=== PATIENT | female | born 1945 | race Caucasian/White ===

== ENCOUNTER → 2017-08-16 | Day surgery (SDC) | payer MEDICARE, OTHER ==
[2017-08-13 15:33] VITALS: BMI 37.5
[~2017-08-16] MED LIST: PROPOFOL 20 ML ONE; PROPOFOL 200 MG/20 ML VIAL ONE
--- NOTE | 2017-08-16 13:43 | ECHO ---
TRANSESOPHAGEAL ECHOCARDIOGRAM: DATE OF SERVICE: 08/16/17 PREPROCEDURE DIAGNOSIS: Atrial fibrillation. DETAILS: The anesthesia department provided anesthesia for the patient. Please see their notes for details. After adequate sedation was achieved, the transesophageal probe was inserted into the patient's mouth and into the esophagus with ease. Multiplanar views were then obtained. FINDINGS: Left ventricle is normal size. Systolic function is estimated at 50-55%. Left atrium is dilated. Left atrial appendage is a large appendage with spontaneous echo contrast. Th ere is laminated thrombus as well as a round small thrombus at the tip of the appendage. Right atrium is mildly dilated. Right ventricle is normal size with normal systolic function. Aortic valve is sclerotic with nodular calcification of the noncoronary. No stenosis. Mild aortic ins ufficiency. Mitral valve is structurally normal. There is mild MR. No stenosis. Tricuspid valve is structurally normal. There is mild TR. No stenosis. Pulmonary valve is structurally normal. Thoracic aorta has a grade II/V atherosclerotic disease. CONCLUSIONS: 1. Normal systolic function, EF of 50-55%. 2. Nodular calcification of the aortic valve with mild AI. 3. Mild MR. 4. Mild TR. 5. Thrombus is seen in the left atrial appendage. There is a small flailing round thrombus and some laminated thrombus adjacent to this with reduced velocities and spontaneous echo contrast throughout the left atrium. Recommend against cardioversion at this point.
== END ==
LOC: CCL 07:56
PROVIDERS: ATTEND Internal Medicine Cardiovascular Disease
PROC: B24BZZ4 Ultrasonography of Heart with Aorta, Transesophageal (ICD-10-PCS; principal; 2017-08-16)
DX: I48.91 Unspecified atrial fibrillation (principal); I34.0 Nonrheumatic mitral (valve) insufficiency; I36.1 Nonrheumatic tricuspid (valve) insufficiency; I70.0 Atherosclerosis of aorta; I51.3 Intracardiac thrombosis, not elsewhere classified; Z88.0 Allergy status to penicillin; Z79.899 Other long term (current) drug therapy; Z79.01 Long term (current) use of anticoagulants
CPT/HCPCS: 92960; 93312; J2704

== ENCOUNTER 2017-08-29 10:04 | Outpatient (CLI) | payer MEDICARE, OTHER | END 2017-08-29 10:05 | disposition home or self-care (01) | LOC: BICMAMMO 10:04 | PROVIDERS: ATTEND Family Medicine | DX: Z12.31 Encounter for screening mammogram for malignant neoplasm of breast (principal); Z78.0 Asymptomatic menopausal state; R92.1 Mammographic calcification found on diagnostic imaging of breast | CPT/HCPCS: 77063; 77067; 77080 ==

== ENCOUNTER → 2017-09-24 | Day surgery (SDC) | payer MEDICARE, OTHER ==
[2017-09-23 09:52] VITALS: BMI 37.5
--- NOTE | 2017-09-24 22:18 | OP ---
DATE OF SERVICE: 09/24/2017. PREPROCEDURE DIAGNOSIS: Atrial fibrillation with RVR. PROCEDURES PERFORMED: Cardioversion. SUMMARY: The patient is a pleasant 71-year-old white female who comes to the PACU for a planned DONNA cardiovers ion. Please see DONNA report for details. After DONNA reported no thrombus in the left atrial appendage, a single synchronized cardioversion was delivered at 100 joules, successfully converting her from rapid atrial fibrillation to sinus rhythm i n the 80s. The patient tolerated the procedure well. RECOMMENDATIONS: 1. Continue anticoagulation with Eliquis. 2. Continue flecainide antiarrhythmic therapy. Follow up in the office in 1 month.
--- NOTE | 2017-09-24 22:24 | ECHO ---
DATE OF SERVICE: 09/24/2017 PREPROCEDURE DIAGNOSIS: Atrial fibrillation with RVR. PROCEDURES PERFORMED: Transesophageal echo. SUMMARY: Transesophageal echo was performed for evaluation before cardioversion. She was brought to the PACU area and consents were signed and verified. Anesthesia department provided with sedation for the pat ient. Please see their notes for details. After adequate sedation was achieved, the transesophageal probe was inserted into the mouth and into the esophagus without problems. Multiplanar views were t hen obtained. Left ventricle is normal size with normal systolic function, EF estimated at 50-55%. Left atrium is dilated, left atrial appendage is large appendage. There is spontaneous echo contrast in the left atrial appendage with no thrombus is seen. Right atrium is mildly dilated. Right ventricle is normal size with normal systolic function. Aortic valve has three cusps, no stenosis. There is mild aortic insufficiency. Mitral valve structurally normal, no stenosis, mild mitral regurgitation. Tricuspid valve is structurally normal. There is mild TR. Pulmonary valve was not well seen. CONCLUSIONS: 1. Normal systolic function, EF of 50-55%. 2. Dilated left atrium with a very large left atrial appendage with spontaneous echo contrast, but n o evidence of mass or thrombus. 3. Right atrial enlargement. 4. Mild TR, mild MR.
== END ==
LOC: CCL 06:55
PROVIDERS: ATTEND Internal Medicine Cardiovascular Disease
DX: I48.1 Persistent atrial fibrillation (principal); I10 Essential (primary) hypertension; E78.5 Hyperlipidemia, unspecified; Z79.01 Long term (current) use of anticoagulants; Z79.899 Other long term (current) drug therapy; Z88.0 Allergy status to penicillin
CPT/HCPCS: 92960; 93312; J2704

== ENCOUNTER 2018-02-15 13:33 | Inpatient (IN) | payer MEDICARE, OTHER ==
[2018-02-15 14:07] LABS: #Basophils 0.1 thou/uL (0.0-0.2); #Lymphocytes 0.7 thou/uL (1.20-3.40); #Monocytes 1.2 thou/uL (0.11-0.59); #Neutrophils 12.8 thou/uL (1.40-6.50); %Basophils 0.4 % (0.0-1.0); %Lymphocytes 4.6 % (21.0-51.0); %Monocytes 8.3 % (0.0-10.0); %Neutrophils 86.8 % (42.0-75.0); Hemoglobin 16.1 g/dL (12.0-16.0); Mean Corpuscular HGB CONC 34.3 g/dL (32.0-36.0); Mean Corpuscular Hemoglobin 32.8 pg (27.0-31.0); Mean Corpuscular Volume 95.7 fL (78.0-98.0); Mean Platelet Volume 8.2 fL (7.4-10.4); Platelet Count 253 thou/uL (130-400); RBC Distribution Width 11.7 % (11.5-14.5); Red Blood Cell (RBC) Count 4.89 mill/uL (4.20-5.40); White Blood Cell (WBC) Count 14.7 thou/uL (4.8-10.8)
[2018-02-15 14:12] LABS: INR-International Normal Ratio 1.3; PTT 29.7 SEC (22.9-36.1); Prothrombin Time 16.1 SEC (12.0-14.7)
[2018-02-15 14:19] LABS: ALT (SGPT) 169 U/L (8-55); AST (SGOT) 649 U/L (5-34); Albumin 4.5 g/dL (3.4-4.8); Alkaline Phosphatase 84 U/L (40-150); Anion Gap 25 mmol/L (10-20); BUN (Urea Nitrogen) 22 mg/dL (9.8-20.1); Bilirubin, Total 1.1 mg/dL (0.2-1.2); Calc. Creatinine Clearance 0 mL/min (70-130); Calcium 10.2 mg/dL (7.8-10.44); Carbon Dioxide 14 mmol/L (23-31); Chloride 105 mmol/L (98-107); Estimated GFR-MDRD 59; Globulin 3.7 g/dL (2.4-3.5); Glucose 154 mg/dL (83-110); Protein, Total 8.2 g/dL (6.0-8.3); Sodium 140 mmol/L (136-145)
--- NOTE | 2018-02-15 14:36 | RAD ---
CHEST 1 VIEW: Date: 02/15/18 INDICATION: History of numbness and weakness. IMPRESSION: No acute cardiopulmonary abnormality. The examination is not appreciably changed from the comparison dated 10/13/14. There are stable vascular calcifications involving the aortic arch. No pleural effusi on, pneumothorax, or air space consolidation is evident. POS: [facility]
[2018-02-15 14:38] LABS: Troponin I 0.015 ng/mL (< 0.028)
[2018-02-15 14:41] LABS: CK (CPK) 37751 U/L (29-168); CKMB 366.4 ng/mL (0-6.6)
--- NOTE | 2018-02-15 14:43 | CT ---
CT BRAIN NONCONTRAST: DATE: 02/15/18 TIME: 1425 hours HISTORY: 72-year-old female with generalized weakness and status post head trauma from fall. COMPARISON: None available. FINDINGS: There is moderate dilation of the lateral ventricles and third ventricle, and mild to moderate dilati on of the fourth ventricle. There is diffuse brain parenchymal volume loss. No acute intra-axial or e xtra-axial hemorrhage. No mass effect, midline shift, extra-axial fluid collection, or acute calvaria l fracture. There is total opacification of all visualized portions of bilateral maxillary sinuses (w ith expansion), extending into the nasal cavities bilaterally, and contiguous with severe, almost tot al opacification of all of the bilateral ethmoid air cells, sphenoid sinus, and total opacification o f bilateral frontal sinuses. IMPRESSION: 1. Ventriculomegaly. This is favored to be secondary to diffuse brain parenchymal atrophy rather michelle n normal pressure hydrocephalus, but clinical correlation is recommended (is there is gait apraxia, d ementia, and/or urinary incontinence?). 2. Diffuse chronic involutional changes of the brain. 3. No acute intracranial hemorrhage. 4. Severe harrington sinus opacification. This could be due to polyposis, including antrochoanal polyps in the maxillary sinuses bilaterally. Recommend otolaryngology consultation. JEFFRY Morillo POS: [facility]
[2018-02-15 15:22] LABS: Clarity Hazy (Clear); Specific Gravity, Urine 1.028 (1.002-1.036)
[2018-02-15 15:27] LABS: Bacteria/HPF 4+ HPF (None Seen); Crystals/HPF 4+ AMORPH PHOS HPF (Negative); Squamous Epithelial 0-3 HPF (0-3); WBC/HPF 21-50 HPF (0-3)
[2018-02-15] MEDS ORDERED: cefTRIAXone\\ROCEPHIN 2 GM VIAL ONE (15:49)
[2018-02-15] MEDS ORDERED: Sodium Chloride 0.9% 100 ML ONE (15:50)
[2018-02-15] MEDS ORDERED: Vancomycin HCl 500 MG VIAL ONE (16:37)
[2018-02-15] MEDS ORDERED: Sodium Chloride 0.9% 200 ML ONE (16:38)
[2018-02-15 17:51] VITALS: BMI 24.9
[2018-02-15] MEDS: Sodium Chloride 0.9% 1,000 ML IV SCH ×2 (18:36→20:16)
[2018-02-15 19:51] LABS: Lactic Acid 0.9 mmol/L (0.5-2.2)
[2018-02-15] MEDS: Acetaminophen 325 MG TAB PO PRN (21:11)
[2018-02-15] MEDS: Melatonin 3 MG TAB PO PRN (21:12)
[2018-02-16] MEDS ORDERED: Morphine 2 MG/ML SYRINGE SLOW IVP SCH (00:15)
[2018-02-16] MEDS ORDERED: Ondansetron PF 4 MG/2 ML Vial IVP PRN (01:21)
[2018-02-16] MEDS ORDERED: Ondansetron ODT 4 MG TAB PO PRN (01:21)
[2018-02-16] MEDS: Sodium Chloride 0.9% 1,000 ML IV SCH ×3 (02:19→16:59)
[2018-02-16 05:47] LABS: #Lymphocytes 1.4 thou/uL (1.20-3.40); #Monocytes 1.2 thou/uL (0.11-0.59); #Neutrophils 9.2 thou/uL (1.40-6.50); %Basophils 0.3 % (0.0-1.0); %Eosinophils 0.1 % (0.0-10.0); %Lymphocytes 11.6 % (21.0-51.0); %Monocytes 10.1 % (0.0-10.0); %Neutrophils 77.9 % (42.0-75.0); Hemoglobin 13.6 g/dL (12.0-16.0); Mean Corpuscular HGB CONC 34.9 g/dL (32.0-36.0); Mean Corpuscular Hemoglobin 35.3 pg (27.0-31.0); Mean Platelet Volume 8.2 fL (7.4-10.4); Platelet Count 231 thou/uL (130-400); RBC Distribution Width 11.8 % (11.5-14.5); Red Blood Cell (RBC) Count 3.86 mill/uL (4.20-5.40); White Blood Cell (WBC) Count 11.8 thou/uL (4.8-10.8)
[2018-02-16 05:54] LABS: Anion Gap 13 mmol/L (10-20); BUN (Urea Nitrogen) 14 mg/dL (9.8-20.1); Calc. Creatinine Clearance 83 mL/min (70-130); Calcium 8.5 mg/dL (7.8-10.44); Carbon Dioxide 20 mmol/L (23-31); Chloride 108 mmol/L (98-107); Estimated GFR-MDRD 84; Glucose 112 mg/dL (83-110); Potassium 3.4 mmol/L (3.5-5.1); Sodium 138 mmol/L (136-145)
[2018-02-16] MEDS: Acetaminophen 325 MG TAB PO PRN ×2 (07:10→21:05)
[2018-02-16] MEDS ORDERED: Potassium Chloride 20 MEQ TAB PO SCH (08:30)
[2018-02-16] MEDS ORDERED: Famotidine/PF 20 mg/2ml Vial SLOW IVP SCH (09:00)
[2018-02-16] MEDS: Carvedilol 6.25 MG TAB PO SCH ×2 (09:11→16:57)
[2018-02-16] MEDS: Lisinopril 20 MG TAB PO SCH (09:11)
[2018-02-16] MEDS: Flecainide 50 MG TAB PO SCH ×2 (09:12→21:03)
[2018-02-16] MEDS: Famotidine 20 MG TAB PO SCH ×2 (09:12→21:04)
--- NOTE | 2018-02-16 13:16 | ULT ---
RIGHT UPPER QUADRANT ULTRASOUND: INDICATIONS: Elevated LFTs. COMPARISON: None. FINDINGS: No focal hepatic lesion is evident. The visualized gallbladder is normal appearing. No sonographic Ureña sign is reported. The common bile duct measures 2.7 mm. The right kidney measures 10.4 x 7.5 x 6.5 cm. No focal renal lesion or hydronephrosis is evident. The visualized aspects of the pancreas are unremarkable appearing. IMPRESSION: No acute abnormality. POS: [facility]
--- NOTE | 2018-02-16 15:15 | RAD ---
RIGHT ANKLE THREE VIEWS: INDICATIONS: History of fall. FINDINGS: There is a nondisplaced lucency involving the distal lateral malleolar tip. There is a small osteoch ondral lesion involving the medial talar dome, measuring 5 mm, which may be chronic. There is soft t issue swelling surrounding the ankle. There is a nondisplaced base of fifth metatarsals fracture. T here is enthesopathic change of the calcaneus. IMPRESSION: 1. Nondisplaced fifth metatarsal base fracture. 2. Nondisplaced lateral malleolar fracture. 3. Osteochondral defect involving the medial talar dome, measuring 5.5 mm. POS: [facility]
--- NOTE | 2018-02-16 16:07 | ULT ---
ULTRASOUND WITH DOPPLER DUPLEX VENOUS LOWER EXTREMITY BILATERAL: CPT: 48571 ICD-10-PCS: B54D HISTORY: Swelling and pain in both lower extremities, predominately the right. TECHNIQUE: Color flow Doppler, spectral waveform analysis of pulsed Doppler, and vaughn-scale imaging with humaira nancy and augmentation, were used to evaluate the bilateral common femoral, femoral, popliteal, instructional specialist ior tibial, and superficial femoral, veins; and the proximal portions of the profunda femoral and gre ater saphenous, veins. FINDINGS: There is normal compression, flow, and augmentation seen within the deep venous structures of both lo wer extremities. IMPRESSION: No evidence of DVT within either lower extremity. POS: [facility]
[2018-02-16] MEDS: Atorvastatin Calcium 10 MG TAB PO SCH (21:03)
[2018-02-16] MEDS: Amlodipine 5 MG TAB PO SCH (21:03)
[2018-02-16] MEDS: Enoxaparin Sodium 40 MG/0.4 ML SYRINGE SC SCH (21:04)
[2018-02-16] MEDS: Melatonin 3 MG TAB PO PRN (21:05)
[2018-02-17] MEDS: Sodium Chloride 0.9% 1,000 ML IV SCH ×3 (02:00→17:29)
[2018-02-17 05:41] LABS: #Eosinphils 0.1 thou/uL (0.0-0.7); #Lymphocytes 1.6 thou/uL (1.20-3.40); #Monocytes 0.8 thou/uL (0.11-0.59); #Neutrophils 5.6 thou/uL (1.40-6.50); %Basophils 0.4 % (0.0-1.0); %Eosinophils 0.7 % (0.0-10.0); %Lymphocytes 20.3 % (21.0-51.0); %Monocytes 9.2 % (0.0-10.0); %Neutrophils 69.5 % (42.0-75.0); Hemoglobin 12.5 g/dL (12.0-16.0); Mean Corpuscular HGB CONC 34.3 g/dL (32.0-36.0); Mean Corpuscular Hemoglobin 35.1 pg (27.0-31.0); Mean Platelet Volume 8.3 fL (7.4-10.4); Platelet Count 209 thou/uL (130-400); RBC Distribution Width 11.8 % (11.5-14.5); Red Blood Cell (RBC) Count 3.56 mill/uL (4.20-5.40); White Blood Cell (WBC) Count 8.1 thou/uL (4.8-10.8)
[2018-02-17 06:01] LABS: Anion Gap 11 mmol/L (10-20); BUN (Urea Nitrogen) 11 mg/dL (9.8-20.1); Calc. Creatinine Clearance 88 mL/min (70-130); Calcium 8.5 mg/dL (7.8-10.44); Carbon Dioxide 21 mmol/L (23-31); Chloride 109 mmol/L (98-107); Estimated GFR-MDRD 90; Glucose 98 mg/dL (83-110); Potassium 3.3 mmol/L (3.5-5.1); Sodium 138 mmol/L (136-145)
[2018-02-17 06:26] LABS: CK (CPK) 8151 U/L (29-168)
--- NOTE | 2018-02-17 07:51 | CON ---
DATE OF CONSULTATION: 02/16/2018 REFERRING PHYSICIAN: Dr. Ramirez. REASON FOR REFERRAL: Right leg weakness and numbness. HISTORY OF PRESENT ILLNESS: This is a 72-year-old female, who last night was getting up out of bed, she said that she started to fall and grabbed a hold of a night table, she did continue to fall and landed on her right side. She states that for hours, she tried to get up, she laid there on the floor from about 1:00 a.m. to 11:00 a.m. and could not get up. She noticed that her right leg was weak and numb, mainly from the ankle down, also a little bit of numbness below the right knee. She did not feel that she had any back pain. There was some pain in the lower extremities from the calf down on the right. There was no weakness of the arms or of the face. She did not loose consciousness. This never happened before. Her chronic medical problems include atrial fibrillation, hyperlipidemia, and hypertension. PAST MEDICAL HISTORY: 1. Atrial fibrillation. 2. Hypertension. 3. Hyperlipidemia. SOCIAL HISTORY: She does not smoke or drink. FAMILY HISTORY: Positive for hypertension in her parents. REVIEW OF SYSTEMS: A 14-point review of systems is negative except for the right leg weakness and numbness and pain. Also, she has chronic swelling of both lower extremities. She states that she gets around with a walker usually because of her balance. She does not have any urinary incontinence and does not have memory loss. PHYSICAL EXAMINATION: GENERAL: She is somewhat obese, but not bad really. Height is recorded as 5 feet 6 inches, weight 154 with BMI 24.9. She is really not obese, it is mainly her legs that are swollen making her have that appearance. VITAL SIGNS: Show a temp of 99, pulse 81, respiratory rate 20, and blood pressure 115/70. HEENT: Normal. No exudates. LUNGS: Clear. HEART: No murmurs or gallops. ABDOMEN: Benign. No pain. SKIN: No rashes. There are some bruises from where she fell. JOINTS: No swelling. EXTREMITIES: The lower extremities below the knee shows 1+ edema, more swelling on the right than the left. There is a positive Chad sign on the right ankle. NEUROLOGICAL: She is awake, alert, oriented x3, calm. Cranial nerves 2 through 12 tested normally. Pupils are 2 mm and reactive. Discs are sharp. Motor in the arms is 5/5 strength with normal tone and bulk. No atrophy or fasciculations. The left lower extremity shows 5/5 strength with normal tone and bulk. The right lower extremity shows proximally her strength 5/5, distally however, she has a foot drop, limited range of motion and 3/5 strength and plantar flexion is fairly good at 4/5 strength. Sensation is intact to light touch and temperature in the upper extremities and in the left lower extremity. In the right lower extremity, in the thigh, temperature and touch is normal and the lower extremity it is diminished on the medial and lateral aspects of the right leg below the knee and more diminished on the lateral part as opposed to the medial part. DTRs are 2+. Toes are downgoing. LABORATORY DATA: Review of test results showed that she had a CT of the head without contrast which is negative and her labs showed that there are some CPKs of 37,751 which has come down to 19,950. IMPRESSION: Status post fall and now she has right leg numbness, weakness, and pain mostly below the knee. This may be consistent with a lumbar herniated disk or possibly with a pinched nerve in her ankle due to her fall. Cerebrovascular accident is somewhat doubtful because there was no weakness of the right arm or the face. However, certain strokes may cause just weakness of the leg. Also considering that she has a positive Chad sign on the right, deep vein thrombosis should be ruled out. PLAN: I ordered an MRI of the brain and MRI of the lumbar spine without contrast, she thinks she may be claustrophobic, so we will order Ativan 1 mg IV transition social worker to the MRI. We will order x-ray of the right ankle and venous doppler of the lower extremities. Discussed with the patient and her daughter. Job ID: [id number]
[2018-02-17] MEDS: Carvedilol 6.25 MG TAB PO SCH ×2 (08:12→17:28)
[2018-02-17] MEDS: Famotidine 20 MG TAB PO SCH ×2 (08:13→20:20)
[2018-02-17] MEDS: Flecainide 50 MG TAB PO SCH ×2 (08:13→20:20)
[2018-02-17] MEDS: Lisinopril 20 MG TAB PO SCH (08:13)
[2018-02-17] MEDS ORDERED: Lorazepam 2 MG/ML VIAL (09:00)
[2018-02-17] MEDS ORDERED: Lorazepam 2 MG/ML VIAL SLOW IVP ONE (09:00)
--- NOTE | 2018-02-17 10:15 | HP ---
CHIEF COMPLAINT: Right lower extremity numbness and status post fall. HISTORY OF PRESENT ILLNESS: The patient is a 72-year-old female, who took a fall last night in the middle of the night. She spent a quite a bit of time on the floor trying to get to bed, finally she did it, and she was able to go to sleep, and this morning, she noticed that there was some numbness in her right lower extremity, and she had some weakness on this side. She was not able to get up and do her routine. Usually, she walks with a walker, so she was taken by EMS to the emergency room for further evaluation and possible admission. Her primary care physician is Dr. Del Rosario and plaster die maker is Dr. Christian. She does not know whether she lost consciousness. She does not know why she fell and what happened exactly. She denies any pain in her leg, just numbness and weakness. She denies any chest pain, dyspnea, or palpitations. She denies any urinary frequency or hematuria. She just noticed that her urine was dark. Apparently, family reported to the emergency room doctor a history of falls in the past. PAST MEDICAL HISTORY: Her past medical history is positive for, 1. Atrial fibrillation. 2. Hyperlipidemia. 3. Hypertension. PAST SURGICAL HISTORY: section x2. SOCIAL HISTORY: She denies any alcohol intake, cigarette smoking, or abusing any illicit drugs. ALLERGIES: PENICILLIN G . MEDICATIONS: 1. Carvedilol 12.5 mg twice a day. 2. Eliquis 5 mg twice a day. 3. Flecainide 50 mg twice a day. 4. Lisinopril 20 mg once a day. 5. Amlodipine 5 mg once a day. 6. Simvastatin 20 mg once a day. PHYSICAL EXAMINATION: GENERAL: She is not in any significant discomfort at this time. VITAL SIGNS: Blood pressure is 161/78, pulse is 95, temperature is 99.2, respiratory rate is 18, and O2 saturation is 95% on room air. HEENT: Her head is normocephalic. Eyes are PERRLA. Sclerae are nonicteric. Conjunctivae are pinkish. Oral mucosa is moist. NECK: Supple. No lymphadenopathy. LUNGS: Clear. HEART: S1 and S2 normal. No S3. No S4. ABDOMEN: Soft, obese, nontender. Bowel sounds are present. No organomegaly. EXTREMITIES: She has several bruises on her left forearm and elbow and in front of her right knee. She has 2+ peripheral edema on both lower extremities. I cannot palpate pulses on her dorsalis pedis and tibialis posterior arteries, similar bilaterally. NEUROLOGIC: She is alert and oriented x4. There is a significant decreased strength in her lower extremities, more on the right than on the left. It is approximately 2/5 on the right side and 3/5 on the left side. She complains about some numbness below the right knee in a circumferential way all the way to the foot . Her extraocular movements within normal limits. Visual rizzo within normal limits. LABORATORY DATA: Labs from yesterday, white count 14.7, hemoglobin 16.1, hematocrit 46.8, platelet count 253,000, 12.8 neutrophils. PT 16.1, INR 1.3, APTT 29.7. Sodium 140, potassium 4.0, chloride 105, CO2 of 14, BUN 22, creatinine 0.94. Lactic acid 7.5. AST 649, ALT 169, alkaline phosphatase 84, total bili 1.1. Creatinine kinase 37,751, CK-MB 366.4, and troponin 0.015. BNP 63.5. Total protein 8.2, globulin 3.7. Urine is brown with specific gravity of 1.028, rbc's 11 to 20, wbc's 21 to 50, 4+ bacteria. Today, her potassium is down to 3.4, and her lactic acid is improved to 0.9. CO2 is up to 20, and white count is down to 11.8 with normal hemoglobin at 13.6. IMAGING STUDIES: CT of the brain showed: 1. Ventriculomegaly. 2. Diffuse chronic involutional changes of the brain. 3. Severe harrington sinus opacification of unclear etiology. Chest x-ray, no acute cardiopulmonary findings. EKG personally reviewed by me showed complete right bundle-branch block, first-degree AV block, nonspecific ST-wave abnormalities, normal axis. IMPRESSION: 1. Status post fall, rhabdomyolysis. It is unclear whether she lost consciousness. She does not think so. 2. Non-anion gap metabolic acidosis, which is resolved at this point with IV fluids. 3. History of paroxysmal atrial fibrillation, now she is in sinus rhythm. 4. Chronic anticoagulation for atrial fibrillation. 5. Hypokalemia. 6. Elevation of transaminases, unclear etiology. The patient is asymptomatic. 7. 4+ bacteria with negative leukocyte esterases and negative nitrites, which looks like just a dirty urine. No infection, but the patient received vancomycin and Rocephin in the emergency room for possible infection. 8. Hypertension. 9. Hyperlipidemia. 10. Ventriculomegaly on the CT of unclear etiology. The patient does not have dementia. She does not have urinary incontinence, which was pointed out towards normal-pressure hydrocephalus. 11. Severe harrington sinus opacification. She will need to have ENT evaluation on outpatient basis when she is over her current problem. PLAN: Full admission to the medical floor. Condition is fair. Activity, bedrest. IV fluids, normal saline at 125 mL per hour. Serial CKs, repeat liver function test, ultrasound of the liver. Urology consultation. Continue her home meds except for apixaban. We will start her on DVT prophylaxis with SCDs and 40 mg of subcutaneous Lovenox every 24 hours, and we will ask her to have ENT evaluation on outpatient basis for her sinus problem. We will give her one dose of potassium since her potassium is 3.4 this morning, and she will have morphine for some pain or discomfort in her lower extremities. Job ID: [id number]
--- NOTE | 2018-02-17 15:45 | PDOC.PN ---
- Subjective Encounter Start Date: 02/17/18 Encounter Start Time: 15:44 Ms. Royal was seen today in follow-up of Rhabdomyolysis following a fall. She is concerned about her right leg which she says isn't " right". She - Objective MAR Reviewed: Yes Vital Signs & Weight: Vital Signs (12 hours) Temp Pulse Resp BP BP Pulse Ox 02/17/18 12:14 98.6 F 87 20 138/80 95 02/17/18 11:51 97.9 F 70 16 147/83 H 96 02/17/18 08:16 95 02/17/18 08:13 136/90 02/17/18 08:12 136/90 02/17/18 08:00 98.0 F 102 H 18 136/90 95 02/17/18 04:00 98.2 F 90 18 134/77 95 Weight Weight 154 lb 6.4 oz I&O: 02/16/18 02/17/18 02/18/18 06:59 06:59 06:59 Intake Total 3525 Balance 3525 Result Diagrams: 02/17/18 05:03 02/17/18 05:03 Phys Exam - Physical Examination HEENT: PERRLA Respiratory: no wheezing, no rales, no rhonchi, clear to auscultation bilateral Cardiovascular: RRR, no significant murmur, no rub Gastrointestinal: soft, non-tender, positive bowel sounds Musculoskeletal: edema present + swelling-2+ edema in both lower extremities R> L Neurological: non-focal, moves all 4 limbs Dx/Plan (1) Rhabdomyolysis Code(s): M62.82 - RHABDOMYOLYSIS Status: Acute (2) Right leg weakness Code(s): R29.898 - OTH SYMPTOMS AND SIGNS INVOLVING THE MUSCULOSKELETAL SYSTEM Status: Acute (3) Fracture of right ankle, lateral malleolus Code(s): S82.61XA - DISP FX OF LATERAL MALLEOLUS OF RIGHT FIBULA, INIT Status : Acute (4) Metatarsal bone fracture Status: Acute (5) Hypertension Code(s): I10 - ESSENTIAL (PRIMARY) HYPERTENSION Status: Acute (6) Atrial fibrillation Code(s): I48.91 - UNSPECIFIED ATRIAL FIBRILLATION Status: Acute - Plan * Rhabdomyolysis- improving- continue IV Hydration * Right leg weakness- Agree with MRI of the brain and lumbar spine * Right ankle fracture- will consult Orthopedic Surgery * HTN- blood pressure is stable * AFIB- heart rate is stable- Eliquis is on hold .
--- NOTE | 2018-02-17 16:40 | MRI ---
MRI OF THE BRAIN WITHOUT CONTRAST: Date: 02/17/18 COMPARISON: None. HISTORY: Fall on Saturday, right leg weakness, assess for acute infarction. TECHNIQUE: Multiplanar, multisequence MR imaging of the brain is obtained without contrast. FINDINGS: The diffusion-weighted imaging demonstrates no evidence for acute infarction. The axial gradient echo imaging demonstrates no evidence for intracranial hemorrhage. There is extensive paranasal sinus disease with opacification of the frontal sinuses, ethmoid air marilyn ls, sphenoid sinuses, and maxillary sinuses. Areas of decreased T2 signal within the opacified parana luis felipe sinuses including bilateral ethmoid air cells, sphenoid sinuses, and maxillary sinuses suggest in spissated secretions and polyposis, and/or fungal sinusitis. There is mild/moderate cerebral volume loss with associated prominence of the CSF-containing spaces. Regional bone marrow signal intensity appears within normal limits. IMPRESSION: Extensive paranasal sinus disease. No evidence for acute infarction or intracranial hemorrhage. POS: [facility]
--- NOTE | 2018-02-17 17:47 | MRI ---
LUMBAR SPINE MRI WITHOUT CONTRAST: 02/17/2018 HISTORY: Fall. Trauma. Pain. Right lower extremity weakness. COMPARISON: None. TECHNIQUE: Multiplanar, multisequence MR imaging of the lumbar spine provided without contrast. FINDINGS: The sagittal STIR imaging demonstrates no focal area of osseous marrow edema. There is distention of a partially imaged urinary bladder. Vertebral body height and alignment appear normal, within the l umbar spine. Assuming five lumbar type vertebral bodies, the conus medullaris terminates at the T12-L1 level. T12-L1: Disk space narrowing and disk desiccation. Mild bilateral facet hypertrophy. No significan t central canal or neural foraminal stenosis. L1-L2: Bilateral facet hypertrophy with fluid within the bilateral facet joints. There is disk spac e narrowing and disk desiccation. There is no significant central canal or neural foraminal stenosis . L2-L3: Bilateral facet hypertrophy and hypertrophy of the ligamentum flavum. Fluid is seen within t he bilateral facet joints. There is disk space narrowing and disk desiccation with mild disk bulge. No significant central canal stenosis. Mild bilateral neural foraminal stenosis. L3-L4: Moderate bilateral facet hypertrophy with fluid within the bilateral facet joints. Disk spac e narrowing and disk desiccation with no significant central canal or neural foraminal stenosis. L4-L5: Disk space narrowing, disk desiccation, and mild bilateral facet hypertrophy. Fluid signal i ntensity noted within the bilateral facet joints, with no significant central canal or neural foramin al stenosis. L5-S1: Bilateral facet hypertrophy with fluid within the bilateral facet joints. There is disk brittanie ccation with no significant central canal or neural foraminal stenosis. The imaged retroperitoneal structures demonstrate no acute findings. IMPRESSION: Multilevel degenerative change, primarily affecting the facet joints. There is fluid within multiple facet joints, which may be seen on the basis of instability. This could be better assessed with poncho tral, flexion, and extension lateral radiographs of the lumbar spine. POS: [facility]
[2018-02-17] MEDS: Enoxaparin Sodium 40 MG/0.4 ML SYRINGE SC SCH (20:19)
[2018-02-17] MEDS: Atorvastatin Calcium 10 MG TAB PO SCH (20:20)
[2018-02-17] MEDS: Amlodipine 5 MG TAB PO SCH (20:20)
[2018-02-17] MEDS: Cipro 250 MG TAB PO SCH (20:21)
[2018-02-18 04:33] LABS: #Eosinphils 0.1 thou/uL (0.0-0.7); #Lymphocytes 1.4 thou/uL (1.20-3.40); #Monocytes 0.6 thou/uL (0.11-0.59); #Neutrophils 4.7 thou/uL (1.40-6.50); %Basophils 0.6 % (0.0-1.0); %Eosinophils 0.9 % (0.0-10.0); %Neutrophils 68.4 % (42.0-75.0); Hemoglobin 12.3 g/dL (12.0-16.0); Mean Corpuscular HGB CONC 35.2 g/dL (32.0-36.0); Mean Corpuscular Hemoglobin 35.9 pg (27.0-31.0); Mean Platelet Volume 8.3 fL (7.4-10.4); Platelet Count 203 thou/uL (130-400); RBC Distribution Width 11.5 % (11.5-14.5); Red Blood Cell (RBC) Count 3.44 mill/uL (4.20-5.40); White Blood Cell (WBC) Count 6.9 thou/uL (4.8-10.8)
[2018-02-18 04:45] LABS: Anion Gap 9 mmol/L (10-20); BUN (Urea Nitrogen) 8 mg/dL (9.8-20.1); Calc. Creatinine Clearance 94 mL/min (70-130); Calcium 8.6 mg/dL (7.8-10.44); Carbon Dioxide 24 mmol/L (23-31); Chloride 108 mmol/L (98-107); Estimated GFR-MDRD Greater than 90; Glucose 98 mg/dL (83-110); Sodium 138 mmol/L (136-145)
[2018-02-18 04:58] LABS: CK (CPK) 6240 U/L (29-168)
[2018-02-18] MEDS: Cipro 250 MG TAB PO SCH ×2 (05:52→20:40)
[2018-02-18] MEDS: Sodium Chloride 0.9% 1,000 ML IV SCH ×3 (05:53→17:25)
[2018-02-18] MEDS: Lisinopril 20 MG TAB PO SCH (08:00)
[2018-02-18] MEDS: Carvedilol 6.25 MG TAB PO SCH ×2 (08:00→17:21)
[2018-02-18] MEDS: Flecainide 50 MG TAB PO SCH ×2 (08:01→20:23)
[2018-02-18] MEDS: Famotidine 20 MG TAB PO SCH ×2 (08:01→20:22)
[2018-02-18] MEDS: Potassium Chloride 20 MEQ TAB PO SCH ×2 (10:26→14:04)
[2018-02-18] MEDS ORDERED: Potassium Chloride 20 MEQ TAB PO SCH (13:00)
--- NOTE | 2018-02-18 14:16 | CON ---
DATE OF CONSULTATION: 02/18/2018 REQUESTING PHYSICIAN: Dr. Jean Marie Byers. CONSULTING PHYSICIAN: Kenn Horta MD REASON FOR CONSULTATION: Right ankle fracture. HISTORY OF PRESENT ILLNESS: This is a 72-year-old female, who fell in the evening of February 14, 2018. She was at home. She spent quite a bit of time on the floor trying to get on the bed. When she finally awoke, she noted some numbness in her right lower extremity. She was admitted for rhabdomyolysis and right lower extremity numbness. Since her hospital admission, she has been seen by the Neurology Team. She has obtained x-rays of her ankle, which showed nondisplaced fracture. We have been consulted for this reason. Her main complaint is numbness. She denies a history of ankle surgery to this side. PAST MEDICAL HISTORY: Significant for atrial fibrillation, hyperlipidemia, hypertension. PAST SURGICAL HISTORY: section x2. SOCIAL HISTORY: Denies any alcohol, tobacco, or illicit drug use. ALLERGIES: PENICILLIN. FAMILY HISTORY: Reviewed, noncontributory. REVIEW OF SYSTEMS: Conducted and otherwise negative except for stated above. PHYSICAL EXAMINATION: VITAL SIGNS: Temperature 99.8, pulse 89, respiratory rate 20, blood pressure 140/84. GENERAL: The patient is awake and alert. She is in no acute distress. She is pleasant and cooperative with exam findings today. HEENT: Normocephalic, atraumatic. NECK: Supple. Trachea midline. Breathing nonlabored. CARDIOVASCULAR: Regular rate and rhythm. EXTREMITIES: The right lower extremity was evaluated. The patient does have some swelling distally. She has decreased sensation noted with gentle palpation of the lateral malleolus. No significant tenderness to palpation. She is able to move all digits of her toes. Capillary refill intact. SKIN: Intact without lesions or rashes. RADIOGRAPHIC FINDINGS: Including views of the right ankle demonstrate a non-displaced distal lateral malleolus fracture. Of note, there is a chondral defect to the talar dome and a non-displaced fifth metatarsal base fracture. ASSESSMENT: Right ankle nondisplaced fracture. PLAN: At this time, we have ordered an orthopedic walking boot. We will also like NAVA hose applied for compression. The patient may weightbear as tolerated. No surgical intervention anticipated from us at this time. She may follow up in the [facility] in 2 to 3 weeks for further evaluation. All questions have been answered at this time. Job ID: [id number]
--- NOTE | 2018-02-18 16:39 | PDOC.PN ---
- Subjective Encounter Start Date: 02/18/18 Encounter Start Time: 14:00 Ms. Royal was seen today in follow-up of fall with Rhabdomyolysis, and right leg weakness. She says she continues to feel like her leg is not working properly, but was able to get up with PT. - Objective MAR Reviewed: Yes Vital Signs & Weight: Vital Signs (12 hours) Temp Pulse Resp BP BP Pulse Ox 02/18/18 08:00 134/77 02/18/18 07:58 98.4 F 91 20 134/77 97 Weight Weight 154 lb 6.4 oz I&O: 02/17/18 02/18/18 02/19/18 06:59 06:59 06:59 Intake Total 3525 1720 Output Total 900 Balance 3525 820 Result Diagrams: 02/18/18 03:40 02/18/18 03:40 Phys Exam - Physical Examination HEENT: PERRLA Respiratory: no wheezing, no rales, no rhonchi, clear to auscultation bilateral Cardiovascular: RRR, no significant murmur, no rub Gastrointestinal: soft, non-tender, positive bowel sounds Musculoskeletal: edema present + 2+ pitting edema of the right lower extremity + bruising on the knee Neurological: non-focal, moves all 4 limbs Dx/Plan (1) Rhabdomyolysis Code(s): M62.82 - RHABDOMYOLYSIS Status: Acute (2) Right leg weakness Code(s): R29.898 - OTH SYMPTOMS AND SIGNS INVOLVING THE MUSCULOSKELETAL SYSTEM Status: Acute (3) Fracture of right ankle, lateral malleolus Code(s): S82.61XA - DISP FX OF LATERAL MALLEOLUS OF RIGHT FIBULA, INIT Status : Acute (4) Metatarsal bone fracture Status: Acute (5) Hypertension Code(s): I10 - ESSENTIAL (PRIMARY) HYPERTENSION Status: Acute (6) Atrial fibrillation Code(s): I48.91 - UNSPECIFIED ATRIAL FIBRILLATION Status: Acute - Plan * Rhabdomyolysis - improving- will re-check her CK in the AM- is suspect e can begin considering stopping the fluids * Right Lower extremity weakness- Discussed the MRI findings with Neurosurgery- The Lumbar spine is likely not the cause of her right leg symptoms. This is more likely attributed to her right ankle fracture. * Right Ankle fracture, as well as fifth metatarsal fracture- this will be treated conservatively with a walking boot * AFIB- her heart rate is stable- will re-start Eliquis * Can begin discharge planning- will screen for Rehab
--- NOTE | 2018-02-18 18:23 | PRG ---
DATE OF SERVICE: 02/18/2018 CHART NOTE The patient is a 72-year-old female, who had a fall on 02/14/2018, and was down for an undetermined period of time, recently admitted by the Medicine Service for rhabdomyolysis as well as right lower extremity numbness and weakness. On report, she has decreased sensation over the right ankle and foot as well as some weakness with dorsiflexion and plantar flexion. The patient was evaluated by Neurology with a brain MRI, which was negative for any acute changes. She was also found to have a right ankle fracture and evaluated by Orthopedics, who felt that this was not surgical and planned to treat her in an orthopedic walking boot. During her evaluation, the patient also had an L-spine MRI done, which shows multilevel degenerative changes, but no evidence of nerve root compression. Neurosurgery was asked to weigh in on lumbar MRI findings. With regard to the patient's right lower extremity numbness and weakness, there does not appear to be any spinal pathology to account for these symptoms. These were likely related to her ankle injury and we will defer to Orthopedics for this regard. Please reach out to Neurosurgery for additional questions or concerns. Job ID: [id number] MTDD
[2018-02-18] MEDS: Amlodipine 5 MG TAB PO SCH (20:22)
[2018-02-18] MEDS: Atorvastatin Calcium 10 MG TAB PO SCH (20:22)
[2018-02-18] MEDS: Apixaban 5 MG TAB PO SCH (20:22)
[2018-02-19] MEDS: Sodium Chloride 0.9% 1,000 ML IV SCH ×2 (04:35→10:13)
[2018-02-19] MEDS: Cipro 250 MG TAB PO SCH (05:35)
[2018-02-19 06:53] LABS: Anion Gap 11 mmol/L (10-20); BUN (Urea Nitrogen) 7 mg/dL (9.8-20.1); Calc. Creatinine Clearance 92 mL/min (70-130); Calcium 8.9 mg/dL (7.8-10.44); Carbon Dioxide 23 mmol/L (23-31); Chloride 107 mmol/L (98-107); Estimated GFR-MDRD Greater than 90; Glucose 98 mg/dL (83-110); Potassium 3.6 mmol/L (3.5-5.1); Sodium 137 mmol/L (136-145)
[2018-02-19 07:06] LABS: CK (CPK) 4475 U/L (29-168)
[2018-02-19 07:23] VITALS: BP 136/81; TEMP 99.7
[2018-02-19] MEDS: Carvedilol 6.25 MG TAB PO SCH (08:11)
[2018-02-19] MEDS: Famotidine 20 MG TAB PO SCH (08:12)
[2018-02-19] MEDS: Lisinopril 20 MG TAB PO SCH (08:12)
[2018-02-19] MEDS: Apixaban 5 MG TAB PO SCH (08:12)
[2018-02-19] MEDS: Flecainide 50 MG TAB PO SCH (08:12)
--- NOTE | 2018-02-19 11:59 | PDOC.PN ---
- Subjective Encounter Start Date: 02/19/18 Encounter Start Time: 11:10 Ms. Royal was seen today in follow-up. She says she continues to have some numbness over the anterior portion of her right calf. Otherwise no complaints. - Objective MAR Reviewed: Yes Vital Signs & Weight: Vital Signs (12 hours) Temp Pulse Resp BP BP Pulse Ox 02/19/18 08:12 136/81 02/19/18 08:11 136/81 02/19/18 07:23 99.7 F H 94 136/81 95 Weight Weight 154 lb 6.4 oz I&O: 02/18/18 02/19/18 02/20/18 06:59 06:59 06:59 Intake Total 1720 2340 Output Total 900 Balance 820 2340 Result Diagrams: 02/18/18 03:40 02/19/18 06:08 Phys Exam - Physical Examination HEENT: PERRLA Respiratory: no wheezing, no rales, no rhonchi, clear to auscultation bilateral Cardiovascular: RRR, no significant murmur, no rub Gastrointestinal: soft, non-tender, no distention, positive bowel sounds Musculoskeletal: pulses present, edema present + swelling in the right lower extremity, no erythema, Dx/Plan (1) Rhabdomyolysis Code(s): M62.82 - RHABDOMYOLYSIS Status: Acute (2) Right leg weakness Code(s): R29.898 - OTH SYMPTOMS AND SIGNS INVOLVING THE MUSCULOSKELETAL SYSTEM Status: Acute (3) Fracture of right ankle, lateral malleolus Code(s): S82.61XA - DISP FX OF LATERAL MALLEOLUS OF RIGHT FIBULA, INIT Status : Acute (4) Metatarsal bone fracture Status: Acute (5) Hypertension Code(s): I10 - ESSENTIAL (PRIMARY) HYPERTENSION Status: Acute (6) Atrial fibrillation Code(s): I48.91 - UNSPECIFIED ATRIAL FIBRILLATION Status: Acute - Plan * Rhabdomyolysis- her CK is now down below 5K, with expected continued improvement * Will discontinue IV fluids, and can stop checking daily CK's * Right leg numbness- likely related to the right ankle fracture- hopefully this will improve with PT * HTN- blood pressure is controlled * AFIB- her heart rate is stable- Eliquis has been re-started.
[2018-02-19] MEDS: Acetaminophen 325 MG TAB PO PRN (15:13)
--- NOTE | 2018-02-20 12:24 | DIS ---
DATE OF ADMISSION: 02/15/2018 DATE OF DISCHARGE: 02/19/2018 DISCHARGE DISPOSITION: Inpatient rehab. DISCHARGE DIAGNOSES: 1. Rhabdomyolysis, status post fall. 2. Right lateral malleolus fracture. 3. Right fifth metatarsal fracture. 4. Chronic atrial fibrillation. 5. Hyperlipidemia. 6. Hypertension. DISCHARGE MEDICATIONS: Include; 1. Cipro 250 mg twice a day. 2. Simvastatin 20 mg at bedtime. 3. Lisinopril 20 mg daily. 4. Flecainide 50 mg twice a day. 5. Carvedilol 12.5 mg twice daily. 6. Eliquis 5 mg twice a day. 7. Norvasc 5 mg at bedtime. CODE STATUS: Full code. ALLERGIES: TO PENICILLIN. PROCEDURES DONE DURING ADMISSION: The patient had a CT scan of the brain showing a ventriculomegaly and some diffuse parenchymal atrophy. There were some diffuse chronic involutional changes and severe harrington sinus opacification. The patient had a lower extremity venous Doppler, which was negative for DVT. The patient had an abdominal ultrasound showing no acute abnormality. An MRI of the brain, which was negative for any acute infarction and had an MRI of the lumbar spine. The major findings of which were multilevel degenerative changes, primarily affecting the facet joints. There was fluid within multiple facet joints, which could be seen on the basis of instability. HOSPITAL COURSE: Ms. Royal is a very pleasant 72-year-old female, who suffered a fall out of her bed at home and was unable to get up and became extremely weak. She was brought to the hospital and found to have rhabdomyolysis with a CK level at approximately 37,000. She was also having fairly severe pain and weakness in her right lower extremity, which was also very swollen. An x-ray of the ankle demonstrated that there was a right lateral malleolar fracture as well as a nondisplaced fifth metatarsal fracture at the base. Venous Doppler was negative for DVT. She was seen by Neurology due to the weakness she was experiencing in her leg and numbness. There was no evidence of stroke or severe lumbar spine disease to explain her numbness and weakness. However, she was able to ambulate with the boot, which was later placed by Orthopedic Surgery, and it is felt that her symptoms are likely related to the fracture in the ankle. The orthopedic surgeon felt that her injury would be nonsurgical and therefore should be able to resolve on its own. She was then transferred to inpatient rehab for rehabilitation with regard to the ankle fracture and her deconditioning. Also during her admission, she was found to have a urinary tract infection with E. coli and was being treated with Cipro for this. Job ID: [id number]
--- NOTE | 2018-02-22 12:16 | EKG ---
Test Reason : Blood Pressure : / mmHG Vent. Rate : 099 BPM Atrial Rate : 099 BPM P-R Int : 182 ms QRS Dur : 130 ms QT Int : 376 ms P-R-T Axes : 035 071 023 degrees QTc Int : 482 ms Normal sinus rhythm with 1st degree AV block Right bundle branch block Possible Inferior infarct , age undetermined Abnormal ECG Nonspecific ST and T wave abnormality Confirmed by RALENE TALAVERA, DEEPA Tapia ([id number]), telegraph editor JAVIER WILKINS ([id number]) on 02/22/2018 12:16:03 PM Referred By: Confirmed By:DEEPA JACOBS MD
== END 2018-02-19 17:14 | DRG 558 ==
LOC: SCSER 13:33 → T4-A 15:30
PROVIDERS: ADMIT Internal Medicine; ATTEND Internal Medicine
DX: M62.82 Rhabdomyolysis (principal); E87.2 Acidosis; N39.0 Urinary tract infection, site not specified; E78.5 Hyperlipidemia, unspecified; I10 Essential (primary) hypertension; I48.0 Paroxysmal atrial fibrillation; E87.6 Hypokalemia; G93.89 Other specified disorders of brain; S82.61XA Displaced fracture of lateral malleolus of right fibula, initial encounter for closed fracture; S92.351A Displaced fracture of fifth metatarsal bone, right foot, initial encounter for closed fracture; W19.XXXA Unspecified fall, initial encounter; B96.20 Unspecified Escherichia coli [E. coli] as the cause of diseases classified elsewhere; Y92.003 Bedroom of unspecified non-institutional (private) residence as the place of occurrence of the external cause; Z88.0 Allergy status to penicillin; Z79.01 Long term (current) use of anticoagulants
CPT/HCPCS: 36415; 51701; 70450; 70551; 71045; 72148; 76705; 80048; 80053; 81001; 82550; 82553; 83605; 83880; 84484; 85025; 85610; 85730; 87040; 87077; 87086; 87186; 93005; 93970; 96361; 96365; 96367; A4353; G8978-GP-CK; G8979-GP-CI; J0696; J1650; J2060; J2270; J3370; J7050

== ENCOUNTER 2018-09-08 09:31 | Outpatient (CLI) | payer MEDICARE, OTHER ==
--- NOTE | 2018-09-08 09:57 | MMO ---
Bilateral MAMMO Bilat Screen [facility]. CLINICAL HISTORY: Patient is 72 years old and is seen for screening. The patient has no family history of breast cancer. The patient has no personal history of cancer. The patient has a history of needle biopsy in 1985 - benign - UNKNOWN LATERALITY. VIEWS: The views performed were: bilateral craniocaudal and bilateral mediolateral oblique. FILMS COMPARED: The present examination has been compared to prior imaging studies performed at [facility] on 06/13/2015, and at [facility] on 08/29/2017. This study has been interpreted with the assistance of computer-aided detection. MAMMOGRAM FINDINGS: There are scattered fibroglandular densities. There are stable benign appearing calcifications seen in both breasts. There are no suspicious masses, suspicious calcifications, or new areas of architectural distortion. IMPRESSION: THERE IS NO MAMMOGRAPHIC EVIDENCE OF MALIGNANCY. A ROUTINE FOLLOW-UP MAMMOGRAM IN 1 YEAR IS RECOMMENDED. ACR BI-RADS Category 2 - Benign finding MAMMOGRAPHY NOTE: 1. A negative mammogram report should not delay a biopsy if a dominant of clinically suspicious mass is present. 2. Approximately 10% to 15% of breast cancers are not detected by mammography. 3. Adenosis and dense breasts may obscure an underlying neoplasm.
== END 2018-09-08 09:32 | disposition home or self-care (01) ==
LOC: SCSMAMMO 09:31
PROVIDERS: ATTEND Family Medicine
DX: Z12.31 Encounter for screening mammogram for malignant neoplasm of breast (principal)
CPT/HCPCS: 77067

== ENCOUNTER 2020-10-31 09:28 | Outpatient (CLI) | payer MEDICARE, OTHER ==
[2020-10-31 11:38] LABS: Hemoglobin A1c 4.9 % (4.0-6.0)
[2020-10-31 12:04] LABS: ALT (SGPT) 17 U/L (8-55); AST (SGOT) 23 U/L (5-34); Albumin 4.2 g/dL (3.4-4.8); Alkaline Phosphatase 82 U/L (40-110); Anion Gap 15 mmol/L (10-20); BUN (Urea Nitrogen) 21 mg/dL (9.8-20.1); Bilirubin, Total 0.7 mg/dL (0.2-1.2); Calc. Creatinine Clearance 0 mL/min (70-130); Calcium 9.7 mg/dL (7.8-10.44); Carbon Dioxide 26 mmol/L (23-31); Cardiac Risk 2.3 (Less than 4.5); Chloride 101 mmol/L (98-107); Cholesterol 173 mg/dl (< 200 Desired); Globulin 3.4 g/dL (2.4-3.5); Glucose 121 mg/dL (83-110); HDL Cholesterol 75 mg/dL (>60 Neg Risk); LDL Cholesterol, Calculated 82 mg/dL; Protein, Total 7.6 g/dL (5.8-8.1); Sodium 138 mmol/L (136-145); Triglycerides 82 mg/dL (Less than 150)
== END 2020-10-31 09:29 | disposition home or self-care (01) ==
LOC: SCSLAB 09:28
PROVIDERS: ATTEND Family Medicine
DX: E78.5 Hyperlipidemia, unspecified (principal); R73.09 Other abnormal glucose
CPT/HCPCS: 36415; 80053; 80061; 83036

== ENCOUNTER 2025-01-07 14:44 | Outpatient (CLI) | payer MEDICARE | END 2025-01-07 14:45 | disposition home or self-care (01) | LOC: BICMAMMO 14:44 | PROVIDERS: ATTEND Family Medicine | DX: Z12.31 Encounter for screening mammogram for malignant neoplasm of breast (principal); Z78.0 Asymptomatic menopausal state; Z91.89 Other specified personal risk factors, not elsewhere classified | CPT/HCPCS: 77063; 77067; 77080 ==